=== PATIENT | male | born 1985 | race Caucasian/White ===

== ENCOUNTER 2019-01-08 19:32 | Emergency (ER) | payer OTHER | END 2019-01-08 21:02 | disposition other institution (70) | LOC: ED 19:32 | DX: Z02.89 Encounter for other administrative examinations (principal) ==

== ENCOUNTER 2019-01-08 19:32 | Emergency (ER) | payer SELFPAY ==
[~2019-01-08] VITALS: Ht 188 cm; Wt 88.5 kg
[2019-01-08 19:40] VITALS: Ht 188 cm; Wt 88.5 kg
[2019-01-08 21:02] VITALS: BP 108/74
== END 2019-01-08 21:02 | disposition other institution (70) ==
LOC: ED 19:32
DX: S93.402A Sprain of unspecified ligament of left ankle, initial encounter (principal); S50.812A Abrasion of left forearm, initial encounter; S50.312A Abrasion of left elbow, initial encounter; S80.812A Abrasion, left lower leg, initial encounter; Z88.1 Allergy status to other antibiotic agents; W03.XXXA Other fall on same level due to collision with another person, initial encounter; Y93.69 Activity, other involving other sports and athletics played as a team or group; Y92.89 Other specified places as the place of occurrence of the external cause; Y99.8 Other external cause status
CPT/HCPCS: 90715